=== PATIENT | male | born 1960 | race Caucasian/White ===

== ENCOUNTER 2021-05-24 07:32 | Emergency (ER) | payer OTHER ==
[2021-05-24 08:32] LABS: Protime INR 10.45
--- NOTE | 2021-05-24 08:37 | ER ---
Nurse's Notes [facility] Name: Mikael Kahn Age: 61 yrs Sex: Male : 1960 Arrival Date: 05/24/2021 Time: 07:36 Bed 2 Private MD: Diagnosis: Adverse effect of anticoagulants;Poisoning by anticoagulants, accidental (unintentional) Presentation: 05/24 07:43 Chief complaint: Patient states: [facility] for [facility] of 13. Pt reports he has em been taking Warfarin for 32 years, and gets his labs checked every 3 months. PT has no complaints at this time. Coronavirus screen: Client denies travel out of the [place] in the last 14 days. Ebola Screen: Patient denies exposure to infectious person. Patient denies travel to an Ebola-affected area in the 21 days before illness onset. Initial Sepsis Screen: Does the patient meet any 2 criteria? No. Patient's initial sepsis screen is negative. Does the patient have a suspected source of infection? No. Patient's initial sepsis screen is negative. Risk Assessment: Do you want to hurt yourself or someone else? Patient reports no desire to harm self or others. Onset of symptoms is unknown. 07:43 Method Of Arrival: Ambulatory em 07:43 Acuity: WM 4 em Historical: - Allergies: 07:44 No Known Allergies; em - Home Meds: 07:44 Lisinopril Oral [Active]; Warfarin Oral [Active]; em - PMHx: 07:44 Hypertensive disorder; em - PSHx: 07:44 Valve replacement; em - Immunization history:: Client reports receiving the 2nd dose of the Covid vaccine. - Social history:: Smoking status: Patient reports the use of cigarette tobacco products, smokes one-half pack cigarettes per day. - Family history:: not pertinent. - Hospitalizations: : No recent hospitalization is reported. Screenin:45 Abuse screen: Denies threats or abuse. Denies injuries from another. Nutritional sv screening: No deficits noted. Tuberculosis screening: No symptoms or risk factors identified. Fall Risk None identified. Assessment: 07:45 General: Appears in no apparent distress. comfortable, Behavior is calm, cooperative, em Denies fever, feeling ill, fatigue, chills. Pain: Denies pain. Neuro: Level of Consciousness is awake, alert, obeys commands, Oriented to person, place, time, situation. Cardiovascular: Capillary refill < 3 seconds is brisk in bilateral fingers Patient's skin is warm and dry. Respiratory: Airway is patent Respiratory effort is even, unlabored, Respiratory pattern is regular, symmetrical. GI: No signs and/or symptoms were reported involving the gastrointestinal system. Patient currently denies abdominal pain, diarrhea, nausea, vomiting. EENT: Oral mucosa is moist. Throat is clear. Derm: Skin is intact, is healthy with good turgor, Skin is dry, Skin is pink, warm \T\ dry. normal. Musculoskeletal: Circulation, motion, and sensation intact. Range of motion: intact in all extremities, Swelling absent. 08:01 Reassessment: Spoke with on phone who states that she called patient's doctor in [facility] who stated to discontinue Warfarin for now and to go to ED for any extra bleeding. Dr. Adame notified. 09:19 Reassessment: Patient appears in no apparent distress at this time. No changes from sv previously documented assessment. Patient and/or family updated on plan of care and expected duration. Pain level reassessed. Patient is alert, oriented x 3, equal unlabored respirations, skin warm/dry/pink. Vital Signs: 07:43 BP 156 / 96; Pulse 71; Resp 16; Temp 98.4(TE); Pulse Ox 98% on R/A; Weight 66.68 kg; em Height 5 ft. 11 in. (180.34 cm); Pain 0/10; 07:43 Body Mass Index 20.50 (66.68 kg, 180.34 cm) em ED Course: 07:36 Patient arrived in ED. ds1 07:39 Zain Adame MD is Attending Physician. rn 07:44 Triage completed. em 07:44 Arm band placed on right wrist. em 07:45 Rossi Meza RN is Primary Nurse. sv 07:45 ED physician to see patient. sv 07:45 Patient has correct armband on for positive identification. Bed in low position. Call sv light in reach. 08:05 Inserted saline lock: 22 gauge in right antecubital area, using aseptic technique. sv ,using aseptic technique. done by Kristina JOHNSON Blood collected. 08:15 PT-INR Sent. sv 09:19 No provider procedures requiring assistance completed. IV discontinued, intact, sv bleeding controlled, No redness/swelling at site. Pressure dressing applied. Administered Medications: No medications were administered Outcome: 08:37 Discharge ordered by . rn 09:19 Discharged to home ambulatory. 09:19 Condition: stable 09:19 Discharge instructions given to patient, Instructed on discharge instructions, follow up and referral plans. Demonstrated understanding of instructions, follow-up care. 09:20 Patient left the ED. sv Signatures: Rossi Meza RN RN Cristóbal Kim RN Sury aCt ds1 Zain Adame MD MD rn Smirch, Shelby, RN RN
--- NOTE | 2021-05-24 08:37 | EDPHYS ---
Physician Documentation [facility] Name: Mikael Kahn Age: 61 yrs Sex: Male : 1960 Arrival Date: 05/24/2021 Time: 07:36 Bed 2 Private MD: ED Physician Zain Adame HPI: 05/24 07:49 This 61 yrs old Male presents to ER via Ambulatory with complaints of rn Abnormal Lab Results. 07:49 Patient reports had blood draw yesterday at [facility], called last night with INR of rn 13. Patient denies any bleeding or trauma. States has had a mechanical aortic valve for 30 years with a dose of 7.5 mg of Coumadin daily without any change.. Onset: The symptoms/episode began/occurred at an unknown time. Severity of symptoms: At their worst the symptoms were mild in the emergency department the symptoms are unchanged. The patient has experienced similar episodes in the past. The patient has been recently seen by a physician:. Denies any active bleeding or trauma. States this is happened multiple times before. Denies any changes in diet or dosing of Coumadin.. Historical: - Allergies: 07:44 No Known Allergies; em - Home Meds: 07:44 Lisinopril Oral [Active]; Warfarin Oral [Active]; em - PMHx: 07:44 Hypertensive disorder; em - PSHx: 07:44 Valve replacement; em - Immunization history:: Client reports receiving the 2nd dose of the Covid vaccine. - Social history:: Smoking status: Patient reports the use of cigarette tobacco products, smokes one-half pack cigarettes per day. - Family history:: not pertinent. - Hospitalizations: : No recent hospitalization is reported. ROS: 07:49 Constitutional: Negative for fever, chills, and weight loss, Eyes: Negative for injury, rn pain, redness, and discharge, ENT: Negative for injury, pain, and discharge, Neck: Negative for injury, pain, and swelling, Cardiovascular: Negative for chest pain, palpitations, and edema, Respiratory: Negative for shortness of breath, cough, wheezing, and pleuritic chest pain, Abdomen/GI: Negative for abdominal pain, nausea, vomiting, diarrhea, and constipation, Back: Negative for injury and pain, MS/Extremity: Negative for injury and deformity, Skin: Negative for injury, rash, and discoloration, Neuro: Negative for headache, weakness, numbness, tingling, and seizure. Exam: 07:49 Constitutional: This is a well developed, well nourished patient who is awake, alert, rn and in no acute distress. Head/Face: Normocephalic, atraumatic. Cardiovascular: Regular rate and rhythm. No pulse deficits. Respiratory: Speaking full sentences, unlabored. No increased work of breathing, no retractions or nasal flaring. Skin: Warm, dry with normal turgor. Normal color with no rashes, no lesions, and no evidence of cellulitis. MS/ Extremity: Pulses equal, no cyanosis. Neurovascular intact. Full, normal range of motion. Equal circumference. Neuro: Awake and alert, GCS 15, normal gait, ambulatory to room without assistance. Vital Signs: 07:43 BP 156 / 96; Pulse 71; Resp 16; Temp 98.4(TE); Pulse Ox 98% on R/A; Weight 66.68 kg; em Height 5 ft. 11 in. (180.34 cm); Pain 0/10; 07:43 Body Mass Index 20.50 (66.68 kg, 180.34 cm) em MDM: 07:41 Patient medically screened. rn 08:35 Differential Diagnosis Supratherapeutic INR. Data reviewed: vital signs, nurses notes, inclusion internship test result(s), and as a result, I will discharge patient. Counseling: I had a detailed discussion with the patient and/or guardian regarding: the historical points, exam findings, and any diagnostic results supporting the discharge/admit diagnosis, lab results, the need for outpatient follow up, to return to the emergency department if symptoms worsen or persist or if there are any questions or concerns that arise at home. Special discussion: I discussed with the patient/guardian in detail that at this point there is no indication for admission to the hospital. It is understood, however, that if the symptoms persist or worsen the patient needs to return immediately for re-evaluation. Based on the history and exam findings, there is no indication for further emergent testing or inpatient evaluation. I discussed with the patient/guardian the need to see the primary care provider for further evaluation of the symptoms. ED course: Patient with INR 10.4. No active bleeding or hemorrhage. Stable vitals. Will give 2.5 mg vitamin K p.o. and patient will hold his Coumadin for a day with [facility] for repeat lab draw.. 09:01 ED course: Pharmacy states no p.o. vitamin K here only IV. IV vitamin K not indicated rn at this moment. Patient on border with 10.45 INR. Will just hold Coumadin and recheck INR in 1 to 2 days with the [facility]. Patient has done this multiple times in the past and is comfortable with plan.. 05/24 07:46 Order name: PT-INR rn 05/24 07:47 Order name: Protime (+INR); Complete Time: 08:38 EDMS 05/24 07:47 Order name: IV Start; Complete Time: 08:02 rn Administered Medications: No medications were administered Disposition Summary: 05/24/21 08:37 Discharge Ordered Location: Home rn Problem: new rn Symptoms: have improved rn Condition: Stable rn Diagnosis - Adverse effect of anticoagulants rn - Poisoning by anticoagulants, accidental (unintentional) rn Followup: rn - With: Private Physician - When: 1 - 2 days - Reason: Recheck today's complaints, Re-evaluation by your physician Discharge Instructions: - Discharge Summary Sheet rn - Warfarin Coagulopathy rn - Bleeding Precautions When on Anticoagulant Therapy, Adult rn - Warfarin Information rn - Vitamin K Foods and Warfarin rn Forms: - Medication Reconciliation Form rn - Thank You Letter rn - Antibiotic corn popper - Prescription Opioid Use rn Signatures: Dispatcher [employer] Cristóbal Gorman, RN RN Zain Fitzgerald MD MD rn
[2021-05-24 09:29] VITALS: BP 156/96; TEMP 98.4; O2SAT 98
== END 2021-05-24 09:20 | disposition home or self-care (01) ==
LOC: ER 07:32
DX: T45.511A Poisoning by anticoagulants, accidental (unintentional), initial encounter (principal); T45.515A Adverse effect of anticoagulants, initial encounter; I10 Essential (primary) hypertension; F17.210 Nicotine dependence, cigarettes, uncomplicated; Z79.01 Long term (current) use of anticoagulants; Z95.4 Presence of other heart-valve replacement
CPT/HCPCS: 36415; 85610; 99283